=== PATIENT | female | born 1990 | race Caucasian/White ===

== ENCOUNTER 2017-03-10 19:35 | Emergency (ER) | payer BC, MEDICAID ==
--- NOTE | 2017-03-10 20:42 | ER NURSING DOCUMENTATION ---
Nurse's Notes [facility] Name:Karyn Gray Age:26 yrs Sex:Female :1990 Arrival Date:03/10/2017 Time:19:35 Bed2 Private MD: Diagnosis:Finger Contusion Presentation: 03/10 19:44 Acuity: CARY 4 tg 19:50 Presenting complaint: Patient states: left 4th finger injury, unsure of mechanism. lb noted with swelling and bruising. denies pain due to sensory loss (c5 quadriplegic). Transition of care: Camp. Notified ED Physician of Dr. Anderson notified. 19:50 Method Of Arrival: Wheelchair lb Triage Assessment: 19:53 General: Appears in no apparent distress, Behavior is appropriate for age, pleasant. lb Pain: Denies pain. Derm:. Musculoskeletal: Swelling present in dorsal aspect of middle phalanx of left ring finger and dorsal aspect of proximal phalanx of left ring finger Tenderness Reports. Injury Description: Bruise sustained to dorsal aspect of middle phalanx of left ring finger and dorsal aspect of proximal phalanx of left ring finger is purple, was sustained 4-6 hours ago. Historical: - Allergies: No known drug Allergies; - Home Meds: 1. Keppra Oral 2. Vimpat oral 3. midodrine oral 4. Baclofen Oral 5. Ditropan Oral 6. dantrolene oral - PMHx: quadriplegic; - Tetanus: unknown. - Ebola Screening: : Patient denies exposure to infectious person. Patient denies travel to an Ebola-affected area in the 21 days before illness onset. . - Immunization history: Flu Vaccine < 1 year. - Social history: Smoking status: Patient states was never smoker of tobacco. Patient/guardian denies using alcohol. - Code Status:: Full code. Screenin:56 Infectious Disease Risk None. Abuse screen: Denies threats or abuse. Denies injuries lb from another. Nutritional screening: No deficits noted. Assessment: 19:55 See Triage Assessment done by same RN. General: Behavior is appropriate for age, lb pleasant. Pain: Denies pain. Neuro: Level of Consciousness is awake, alert, Oriented to person, place, time, event, Paralysis Speech is normal, Facial symmetry appears normal, Pupils are PERRLA. Vital Signs: 19:54 BP 93 / 65; Pulse 75; Resp 14; Temp 98.4; Pulse Ox 94% on R/A; Weight 56.7 kg; Height 5 lb ft. 9 in. (175.26 cm); Pain 0/10; 19:54 Body Mass Index 18.46 (56.70 kg, 175.26 cm) lb ED Course: 19:39 Patient arrived in ED. dp 19:44 Triage completed. tg 19:46 Curry Anderson MD is Attending Physician. be 19:50 Lisa Emerson is Primary Nurse. lb 19:55 Port Xray Completed. dnn 19:56 Valuables Remains with patient Patient has correct armband on for positive lb identification. 20:41 kapil tape fingers. lb Administered Medications: No medications were administered Outcome: 20:28 Discharge ordered by MD. be 20:41 Discharged to [facility] 20:41 Condition: good 20:41 Discharge Assessment: Patient awake, alert and oriented x 3. No cognitive and/or functional deficits noted. Patient verbalized understanding of disposition instructions. 20:41 Instructed on discharge instructions, follow up and referral plans. [facility] 20:41 Patient left the ED. lb Signatures: Olaf Phan, RN RN Curry Anderson MD MD be Norman, David dnn Bollock, Lynda lb Jenae Santos dp
--- NOTE | 2017-03-10 20:42 | ER PHYSICIAN DOCUMENTATION ---
Physician Documentation [facility] Name:Karyn Gray Age:26 yrs Sex:Female :1990 Arrival Date:03/10/2017 Time:19:35 Bed2 Private MD: Curry Gutierrez Disposition: 03/10/17 20:28 Discharged to Home/Self Care. Impression: Finger Contusion. - Condition is Good. - Discharge Instructions: FINGER CONTUSION. - Medical Reconciliation form form. - Follow up: Private Physician; When: As needed; Reason: Recheck today's complaints. - Problem is new. - Symptoms have improved. HPI: 03/10 20:02 This 26 yrs old Female presents to ER via Wheelchair with complaints of be Finger Injury - LEFT RING FINGER. 20:02 The complaints affect the dorsal aspect of proximal phalanx of left ring finger and be dorsal aspect of middle phalanx of left ring finger. Context: The problem [place] park. Compartment Syndrome symptoms: unable to determine. Historical: - Allergies: No known drug Allergies; - Home Meds: 1. Keppra Oral 2. Vimpat oral 3. midodrine oral 4. Baclofen Oral 5. Ditropan Oral 6. dantrolene oral - PMHx: quadriplegic; - Tetanus: unknown. - Ebola Screening: : Patient denies exposure to infectious person. Patient denies travel to an Ebola-affected area in the 21 days before illness onset. . - Immunization history: Flu Vaccine < 1 year. - Social history: Smoking status: Patient states was never smoker of tobacco. Patient/guardian denies using alcohol. - Code Status:: Full code. ROS: 20:03 MS/extremity: Positive for ecchymosis, swelling, tenderness, quadraparesis, Negative be for injury or acute deformity. 20:03 All other systems are negative. Exam: 20:04 Constitutional: This is a well developed, well nourished patient who is awake, alert, be and in no acute distress. 20:04 Musculoskeletal/extremity: Extremities: grossly normal except: spastic quadraplegic. 20:04 Skin: Turgor: is good, ecchymosis left ring finger c/w ruptured blood vessel. Vital Signs: 19:54 BP 93 / 65; Pulse 75; Resp 14; Temp 98.4; Pulse Ox 94% on R/A; Weight 56.7 kg; Height 5 lb ft. 9 in. (175.26 cm); Pain 0/10; 19:54 Body Mass Index 18.46 (56.70 kg, 175.26 cm) lb MDM: 19:46 Patient medically screened. be 20:05 Differential diagnosis: closed fracture, contusion. Data reviewed: vital signs, nurses be notes. 20:27 Data reviewed: and as a result, I will discharge patient, order radiologic studie(s), be plain X-ray(s). 03/11 08:47 Order name: HAND; [address] [place] [id number] EDMS Dispensed Medications: No medications were administered Signatures: Curry Anderson MD MD be Lisa Emerson
--- NOTE | 2017-03-11 07:38 | RADIOLOGY REPORT ---
Three views of the left hand demonstrates no displaced fracture or dislocation. The joints appear unremarkable. IMPRESSION: No displaced injury is identified. If clinically indicated, further evaluation and/or follow-up may be of benefit. ANN
== END 2017-03-10 20:42 | disposition home or self-care (01) ==
LOC: ER 19:35
DX: S60.042A Contusion of left ring finger without damage to nail, initial encounter (principal); G82.50 Quadriplegia, unspecified; Z79.899 Other long term (current) drug therapy
CPT/HCPCS: 99283